=== PATIENT | female | born 1955 | race Caucasian/White ===

== ENCOUNTER → 2023-08-22 07:35 | Outpatient (REF) | payer OTHER, SELFPAY | LOC: HWRAD 07:35 | PROVIDERS: ATTENDING PHYSICIAN Radiology Radiation Oncology; FAMILY PHYSICIAN Family Medicine | DX: C08.0 Malignant neoplasm of submandibular gland (principal) | CPT/HCPCS: 70490 ==

== ENCOUNTER 2024-05-25 13:55 | Emergency (ER) | payer OTHER, SELFPAY ==
[2024-05-25 14:04] VITALS: BP 130/100
[2024-05-25 17:18] VITALS: BMI 39.6
[2024-05-25 17:21] VITALS: BP 126/85
--- NOTE | 2024-05-25 17:23 | ED.GENMED ---
History of Present Illness
General
Chief Complaint: DVT/Possible Blood Clot
Source: patient and family
Time Seen by Provider: 05/25/24 15:48
History of Present Illness
History of Present Illness:
68-year-old female with past medical history of chronic headaches, hypothyroidism, bipolar disorder, status post left total knee replacement done Tuesday of this week at [facility] by Dr. Hensley who presents to the emergency department at
the request of patient's visiting physical therapist due to pain, edema and erythema of the left lower extremity. Patient states that she has been able to ambulate with her walker as directed and has been compliant with medications including
finishing a course of Keflex and continues to take her twice daily 81 mg aspirin. Patient denies any fevers, chills, rigors, chest pain, shortness of breath, palpitations, diaphoresis, exertional dyspnea or orthopnea.
Past History
Past History
ED Past Medical History: Hypercholesterolemia, Psychiatric and Other (headaches)
ED Past Surgical History: Gynecological, Orthopedic and Other
Social History
Tobacco: Non-smoker
Alcohol: None
Drug: None
Personal: Single
Living: with family
Review of Systems
Review of Systems
All Other Systems: ROS reviewed and negative except as documented in HPI and ROS
Phy Exam
Physical Exam
Physical Exam:
GENERAL: Alert , in no apparent distress
EYE: conjunctiva clear
NECK: Supple
ENT: o/p clr, mmm.
CARDIAC: Regular rate and rhythm
LUNGS: Clear breath sounds bilaterally, no acute respiratory distress, no wheezes/rales/rhonchi
NEUROLOGICAL: Alert and oriented
SKIN: Warm and dry, Large postoperative dressing in place, superior to this dressing and underlying the dressing is a large area of erythema, warmth, induration that extends into the proximal and medial thigh also lateral thigh. There is edema to
the entirety of the left lower extremity compared to the right but patient still has palpable pedal and tibial pulses. Cap refill is less than 2 seconds.
MUSCULOSKELETAL: well perfused.
PSYCH: Normal and appropriate interaction.
Scores
Heart Failure Risk
Heart Failure Risk Score: Not Applicable
Heart Score for Chest Pain Patients
STEMI patient?: Not applicable
Withdrawal Assessment of Alcohol
Withdrawal Assessment Completed?: Not applicable
Course
Orders/Labs/Results
Orders:
Orders
05/25/24 14:03
US Periph Venous LOWER Ext LT Urgent
Comment:
Reason For Exam: recent knee replacement, red/swelling
05/25/24 16:54
Vancomycin [Vancocin] 2,000 mg 0.9% Sodium Chloride 500 ml [Nss] 500 ml IV NOW
05/25/24 17:14
Basic Metabolic Panel Urgent
Complete Blood Count/With Diff Urgent
05/25/24 18:36
Acetaminophen [Tylenol] 1,000 mg PO NOW STA
05/25/24 18:49
Blood Culture Q30M
HUEY Source: Blood/Venous
Specimen Description:
Blood Culture Q30M
HUEY Source: Blood/Venous
Specimen Description:
Abnormal Lab Results
05/25/24
17:14
RBC 3.29 L 10^6/uL
(4.20-5.40)
Hgb 10.5 L g/dL
(12.0-16.0)
Hct 31.0 L %
(37.0-47.0)
MCH 31.9 H pg
(27.0-31.0)
Abs Immat Gran (auto) 0.1 H 10^3/uL
(0-0.05)
Absolute Lymphs (auto) 0.7 L 10^3/uL
(1.2-3.4)
Absolute Monos (auto) 0.8 H 10^3/uL
(0.1-0.6)
Immature Gran % 0.6 H %
(0-0.5)
Neutrophils % 77.7 H %
(42.2-75.2)
Lymphocytes % 8.8 L %
(20.5-51.1)
Monocytes % 10.0 H %
(1.7-9.3)
BUN 28 H mg/dl
(7-17)
Creatinine 1.3 H mg/dL
(0.6-1.0)
05/25/24 17:14
05/25/24 17:14
Vital Signs
Initial and Last Documented VS:
Initial Vital Signs
Temp Pulse Resp BP Pulse Ox
98.7 F 109 18 130/100 99
05/25/24 14:04 05/25/24 14:04 05/25/24 14:04 05/25/24 14:04 05/25/24 14:04
Last Documented Vital Signs
Temp Pulse Resp BP Pulse Ox
99.4 F 114 20 126/85 100
05/25/24 18:35 05/25/24 18:35 05/25/24 17:21 05/25/24 17:21 05/25/24 17:21
MDM/Problems Addressed
Differential Diagnosis Includes:
DVT, postoperative cellulitis/septic joint, postop inflammatory changes, compartment syndrome
MDM/Problems Addressed:
68-year-old female presenting to the ER for evaluation at the request of home physical therapist for evaluation of left lower extremity edema, erythema and pain. Patient is postop day 3 from a left total knee replacement done at separate facility.
Finished Keflex this morning. I am most concerned for cellulitis/postoperative wound infection but given the recent surgery will still obtain an ultrasound to rule out DVT. Plan for labs and IV antibiotics. Patient likely to need admission given
she failed course of outpatient antibiotics
*Radiology
Radiology exam reviewed: radiology read reviewed
*Pulse Oximetry
Patient hypoxic: no
*Critical Care Note
Total Time (30-74mins, 75-104mins- exclusive of procedures): Not Applicable
Patient Management
Discussion with other providers: Hospitalist and [employer]
Escalation/DeEscalation of care consider admission/obs:
Ultrasound negative for DVT. Hospitalist team notified and accepts for continued evaluation and treatment. I did attempt to contact patient's Ortho group via telephone ([phone]) however I did not get a response back.
After notifying the hospitalist team here, I did speak with on-call orthopedic surgeon, Dr. Velarde, at [facility] and notified him of these findings. He does agree patient needs admission. Hospitalist team now stating they would prefer
patient be transferred to [facility] for continuity of care given patient just had surgery there this week. I spoke to internal medicine team/hospitalist, Dr. Pop, who accepts the patient in transfer to [facility] for continued
IV antibiotics.
ED Attending Note
-
Portions of this chart may have been created with voice recognition software.� Occasional wrong word or��sound alike� substitutions may have occurred due to the inherent limitations of voice recognition software.
Discharge Plan
Departure
Patient Disposition: Acute Care Hospital
Date of Disposition: 05/25/24
Time of Disposition: 18:36
Discharge Problem:
Cellulitis of left leg
Prescriptions:
No Action
polyethylene glycol 3350 [Miralax] 17 gram Powder In Packet
17 g PO HSPRN PRN (Reason: constipation)
Theragen Tablet
1 tab PO DAILY
aspirin 81 mg Tablet,Delayed Release (Dr/Ec)
81 mg PO BID
tramadol 50 mg Tablet
50 mg PO Q4HPRN PRN (Reason: moderate pain)
acetaminophen [Tylenol Extra Strength] 500 mg Tablet
500 mg PO Q6HPRN PRN (Reason: mild pain)
levothyroxine 75 mcg Tablet
75 mcg PO DAILY
carbamazepine 200 mg Tablet
200 mg PO BID
pantoprazole 40 mg Tablet,Delayed Release (Dr/Ec)
40 mg PO DAILY
simvastatin 20 mg Tablet
20 mg PO HS
docusate sodium [Stool Softener] 100 mg Capsule
100 mg PO BIDPRN PRN (Reason: if miralax ineffective)
Patient Comments:
05/25/24: Patient wants this medication, because her miralax last night was ineffective
oxycodone 5 mg Tablet
5 mg PO Q4HPRN PRN (Reason: severe pain)
Patient Comments:
05/25/24: Patient is reluctant to take due to addictive property
aripiprazole 15 mg Tablet
15 mg PO HS
Referrals:
Waleska Glasgow DO [Family Provider] -
Hospital Transfer
Other hospital: [facility]
I certify that the patient requires transfer: Yes
Discussed case with accepting physician: Dr. Pop
Reason for transfer: continuity of care PCP
Interventions
Interventions:
*Risk Screen - Suicide Last Done: 05/25/24 14:07
*General Assessment Last Done: 05/25/24 14:07
*Neglect/Abuse Screening Last Done: 05/25/24 14:07
*ED COVID-19 Vaccine History Last Done: 05/25/24 14:07
ED- Cardiac Assessment Last Done: 05/25/24 17:26
ED- Pulmonary Assessment Last Done: 05/25/24 17:27
ED-Peripheral Vascular Assessment Last Done: 05/25/24 17:27
ED-Skin Assessment Last Done: 05/25/24 17:27
Discharge Date and Time
Print Language: ISRAELI
[2024-05-25 17:29] LABS: % Basophils 0.7 % (0-2); % Eosinophils 2.2 % (0-6); % Immature Granulocytes 0.6 % (0-0.5); % Lymphocytes 8.8 % (20.5-51.1); % Neutrophils 77.7 % (42.2-75.2); Absolute Basophils 0.1 10^3/uL (0-0.2); Absolute Eosinophils 0.2 10^3/uL (0-0.7); Absolute Immature Granulocytes 0.1 10^3/uL (0-0.05); Absolute Lymphocytes 0.7 10^3/uL (1.2-3.4); Absolute Monocytes 0.8 10^3/uL (0.1-0.6); Absolute Neutrophils 6.3 10^3/uL (1.4-6.5); Hemoglobin 10.5 g/dL (12.0-16.0); Mean Corp Hgb Conc. 33.9 g/dL (33.0-37.0); Mean Corpuscular Hgb 31.9 pg (27.0-31.0); Mean Corpuscular Volume 94.2 fL (81.0-99.0); Mean Platelet Volume 10.2 fL (7.4-10.4); Nucleated Red Blood Cells % 0 %; Platelet Count 220 10^3/uL (130-400); Red Blood Cell Count 3.29 10^6/uL (4.20-5.40); Red Cell Dist. Width 11.7 % (11.5-14.5); White Blood Cell Count 8.1 10^3/uL (4.8-10.8)
[2024-05-25 17:51] LABS: Blood Urea Nitrogen 28 mg/dl (7-17); Carbon Dioxide 26 mmol/L (22-30); Chloride 105 mmol/L (98-107); Estimated Creatinine Clearance 43 ml/min; Glucose 93 mg/dl (70-99); Sodium 139 mmol/L (135-145); eGFR 44.51
[2024-05-25] MEDS: TYLENOL 1000 MG PO (18:44)
[2024-05-25] MEDS: VANCOCIN 540 MG IV (18:49)
== END 2024-05-25 20:04 | disposition short-term general hospital (02) ==
LOC: EMR 13:55
PROVIDERS: Physician Assistant Medical; EMERGENCY PHYSICIAN Emergency Medicine; FAMILY PHYSICIAN Family Medicine
DX: L03.116 Cellulitis of left lower limb (principal); R60.0 Localized edema; E78.00 Pure hypercholesterolemia, unspecified; E03.9 Hypothyroidism, unspecified; F31.9 Bipolar disorder, unspecified; Z79.82 Long term (current) use of aspirin; Z96.652 Presence of left artificial knee joint
CPT/HCPCS: 99284; 96365; 96366; 80048; 85025; 87040; 93971